=== PATIENT | female | born 1950 | race Caucasian/White ===

== ENCOUNTER 2023-12-24 19:01 | Emergency (ER) | payer MEDICARE ==
[~2023-12-24] VITALS: Ht 154.9 cm; Wt 63.5 kg
[2023-12-24 19:16] VITALS: BP_SYST 116; PULSE 77; RESP 16; TEMP 97.1; O2SAT 96
[2023-12-24 19:42] LABS: BASOPHILS # (AUTO) 0.1 K/uL (0.0-0.2); BASOPHILS % (AUTO) 0.8 % (0.0-2.0); EOSINOPHILS # (AUTO) 0.1 K/uL (0.0-0.4); EOSINOPHILS % (AUTO) 1.5 % (0.0-4.0); HEMATOCRIT 44.4 % (36-48); HEMOGLOBIN 15.3 g/dL (12.0-16.0); LYMPHOCYTES % (AUTO) 25.2 % (20.5-51.5); MEAN CORPUSCULAR HEMOGLOBIN 32 pg (27-31); MEAN CORPUSCULAR HGB CONC 35 % (32-36); MEAN CORPUSCULAR VOLUME 92 fL (79.0-98.0); MONOCYTES # (AUTO) 0.5 K/uL (0.0-1.0); MONOCYTES % (AUTO) 6.4 % (1.7-9.3); NEUTROPHILS # (AUTO) 5.2 K/uL (1.8-7.7); NEUTROPHILS % (AUTO) 66.1 % (40.0-70.0); PLATELET COUNT (AUTO) 270 K/uL (130-430); RED BLOOD CELL COUNT(AUTO) 4.84 MIL/uL (4.2-6.2); RED CELL DISTRIBUTION WIDTH 12.8 % (9.0-15.0); WHITE BLOOD COUNT (AUTO) 7.9 K/uL (4.8-10.8)
[2023-12-24 19:50] LABS: ANION GAP 12 (5-15); CALCIUM 9.1 mg/dL (8.4-11.0); CARBON DIOXIDE 27 mmol/L (23-29); CHLORIDE 101 mmol/L (98-107); CREATININE 0.85 mg/dL (0.55-1.30); GLUCOSE 153 mg/dL (74-106); POTASSIUM 3.8 mmol/L (3.5-5.1); SODIUM SERUM 140 mmol/L (136-145); UREA NITROGEN, BLOOD 6 mg/dL (8-21)
[2023-12-24 20:53] VITALS: BP_SYST 116; PULSE 77; RESP 16; TEMP 97.1; O2SAT 96
== END 2023-12-24 20:53 | disposition home or self-care (01) ==
LOC: SED 19:01
DX: R55 Syncope and collapse (principal); Z88.6 Allergy status to analgesic agent
CPT/HCPCS: 36415; 73030; 80048; 82948; 85025; 93005; 99285